=== PATIENT | male | born 1975 | race African-American/Black ===

== ENCOUNTER 2023-05-06 20:59 | Emergency (ER) | payer BC, MEDICARE, SELFPAY ==
[2023-05-06] VITALS (12 sets, daily range): BP systolic 116–153; BP diastolic 76–111; PULSE 79–97; RESP 20–22; O2SAT 96–99; BMI 26.6
--- NOTE | 2023-05-06 21:24 | ED_ITS ---
HPI - SOB/Dyspnea General Chief Complaint: Shortness of Breath/Dyspnea Stated Complaint: Shortness of Breath Time Seen by Provider: 05/06/23 21:01 Source: patient Mode of arrival: ambulance History of Present Illness HPI Narrative: This 48-year-old male with a history of a cerebral aneurysm in 2013 that required a coil who is a nonsmoker and has a history of anxiety and depression who takes Prozac and Seroquel is brought emergency department by EMS from his bssqyvl-nd-ljy's house for evaluation after he took his nighttime medications and fell asleep briefly and then woke up with pounding in his chest and shortness of breath and then had some left-sided hand numbness and tingling. The patient had a similar episode in the past week and was seen at [facility]. He had a workup at that time and is scheduled for a sleep study and wore a threat monitoring analyst for 48 hours. He denies any dizziness diaphoresis or syncope. He has no nausea or vomiting. The patient is going through a separation and left his of 14 years 4 days ago which is why he is staying with his [id number]. He denies any headache. He has no focal weakness numbness or tingling. Related Data Home Medications Medication Instructions Recorded Confirmed buspirone 5 mg tablet 5 mg PO BID 05/06/23 05/06/23 fluoxetine 10 mg tablet 10 mg PO DAILY 05/06/23 05/06/23 lisinopril 10 mg tablet 10 mg PO DAILY 05/06/23 05/06/23 quetiapine 400 mg tablet (Seroquel) 400 mg PO DAILY 05/06/23 05/06/23 Allergies Allergy/AdvReac Type Severity Reaction Status Date / Time No Known Drug Allergies Allergy Verified 05/06/23 21:03 Review of Systems ROS Status of ROS 10 or more systems reviewed and unremarkable except as noted in history and below [facility] Social History Smoking status: Former smoker Exam Narrative Exam Narrative: Nurses note and vital signs reviewed and patient is not hypoxic. General: The patient appears well and in no apparent distress. Patient is resting comfortably on cart. He is alert, mildly anxious, talking on his phone, GCS 15 Skin: Warm, dry, no pallor noted. There is no rash noted. Head: Normocephalic, atraumatic Eye: Normal conjunctiva, no drainage, EOMI. PERRL Ears, Nose, Mouth, and Throat: oral mucosa is moist. Nares patent. Mouth without vesicles. Cardiovascular: Regular Rate and Rhythm S1S2, Murmurs rubs or gallops appreciated pulses are brisk and equal bilaterally Respiratory: Patient is in no distress, no accessory muscle use, lungs are clear to auscultation, no wheezing, rales or rhonchi Back: non-tender, no CVA tenderness bilaterally to percussion. GI: Normal bowel sounds, no tenderness to palpation, no masses appreciated. No rebound, guarding, or rigidity noted. Musculoskeletal: The patient has no evidence of calf tenderness, no pitting edema, symmetrical pulses noted bilaterally Neurological: A&O x4, normal speech, Upper and lower external he strength and sensation is intact, no facial droop Psychiatric: Cooperative Constitutional Vital Signs, click to edit/add: Last Vital Signs Pulse 84 05/06/23 23:00 Resp 21 05/06/23 21:30 BP 129/78 05/06/23 23:00 Pulse Ox 96 05/06/23 23:00 O2 Del Method Room Air 05/06/23 21:13 Course Vital Signs Vital signs: Vital Signs Blood Pressure 116/86 05/06/23 21:01 Pulse Rate 84 05/06/23 23:00 Respiratory Rate 21 05/06/23 21:30 Blood Pressure 129/78 05/06/23 23:00 Pulse Oximetry 96 05/06/23 23:00 Oxygen Delivery Method Room Air 05/06/23 21:13 MDM - SOB/Dyspnea MDM Narrative Medical decision making narrative: This 48-year-old male who is recently from his and has a history of depression and anxiety brought emergency department by EMS from his tpdwoka-cy-gbl's house where he is currently staying. The patient took his nighttime medications and woke up with palpitations and left arm numbness and tingling. He states he try to go back to sleep but his symptoms recurred. He had a similar event recently and was seen at [facility]. He was scheduled for a sleep study and wore a threat monitoring analyst for several days. He has not sent the threat monitoring analyst in for evaluation yet. He was diagnosed with anxiety and hypokalemia at [place] after a cardiac workup was negative. I repeated cardiac workup including troponin, d-dimer, delta troponin, CBC with differential and comprehensive metabolic profile. His potassium was 2.7 again today. He was medicated with IV and oral potassium for this. He had a normal EKG upon arrival. He has on the threat monitoring analyst without any cardiac arrhythmia or notable abnormality. His vital signs have been stable. He does admit that he has not been taking his lisinopril recently and thinks he has left it at his estranged wives house. He was medicated in the ED with 324 mg baby aspirin, IV fluids, potassium replacement and or valium. On reevaluation he states he is feeling much better. He was able to sleep for a while. He feels comfortable being discharged home. He'll be discharged home with a short course of Ativan to use if he has recurrent episodes of what sounds like anxiety/panic attacks while trying to go to sleep as well as a refill of his lisinopril so he can resume it as he has been off of it for a week and potassium supplementation. He intends to follow up for the sleep study and follow up for further evaluation of his cardiac monitoring. Medical Records Attestation: I reviewed the patient's medical records. (Recent emergency department visit from [facility] was reviewed) Medical records narrative: Pt had a negative cardiac workup and a potassium of 2.7 diagnosed with panic attack and hypokalemia. Discharged home with Rx for potassium Lab Data Lab results narrative: potassium of 2.7, normal d dimer, troponin and delta troponin are normal Labs: Lab Results 05/06/23 05/06/23 Range/Units 21:05 23:11 WBC 8.8 (4.0-11.0) 10^3/uL RBC 4.42 L (4.70-6.10) 10^6/uL Hgb 13.1 L (14.0-18.0) g/dL Hct 38.8 L (42.0-54.0) % MCV 87.8 (80.0-94.0) fL MCH 29.6 (25.9-34.0) pg MCHC 33.8 (29.9-35.2) g/dL RDW 13.3 (11.0-15.0) % Plt Count 338 (150-450) 10^3/uL MPV 9.1 L (9.5-13.5) fL Neut % (Auto) 58.2 (43.0-75.0) % Lymph % (Auto) 31.6 (20.5-60.0) % [place] % (Auto) 8.3 (1.7-12.0) % Eos % (Auto) 1.2 (0.9-7.0) % Baso % (Auto) 0.5 (0.2-2.0) % Neut # (Auto) 5.1 (1.4-6.5) 10^3/uL Lymph # (Auto) 2.8 (1.2-3.8) 10^3/uL [place] # (Auto) 0.7 (0.3-0.8) 10^3/uL Eos # (Auto) 0.1 (0.0-0.7) 10^3/uL Baso # (Auto) 0.0 (0.0-0.1) 10^3/uL Abs Immat Gran (auto) 0.02 (0.00-0.03) 10^3/uL Imm/Tot Granulo (auto) 0.2 (0.0-0.5) % D-Dimer <0.19 (<=0.59) mg/L FEU Sodium 138 (136-145) mmol/L Potassium 2.7 L* (3.5-5.1) mmol/L Chloride 103 (98-107) mmol/L Carbon Dioxide 24.5 (21.0-32.0) mmol/L Anion Gap 13.2 BUN 6.0 L (7.0-18.0) mg/dL Creatinine 1.06 (0.70-1.30) mg/dL Est GFR ( Amer) >60 (>=60) Est GFR (Non-Af Amer) >60 (>=60) BUN/Creatinine Ratio 5.7 Glucose 118 H (74-106) mg/dL Calcium 9.1 (8.5-10.1) mg/dL Total Bilirubin 0.8 (0.2-1.0) mg/dL AST 20 (15-37) U/L ALT 24 (16-63) U/L Alkaline Phosphatase 69 (46-116) U/L Troponin I High Sens 9.4 13.8 (4.0-76.1) pg/mL Total Protein 7.7 (6.4-8.2) g/dL Albumin 4.1 (3.4-5.0) g/dL Globulin 3.6 g/dL Albumin/Globulin Ratio 1.1 ECG Data Attestation: I personally reviewed and interpreted this ECG as follows: (Sinus rhythm at 87 beats for minute, normal axis, normal intervals, no acute ST segment elevation or T-wave inversion, interpretation some limited by patient movement) Discharge Plan Discharge Chief Complaint: Shortness of Breath/Dyspnea Clinical Impression: Anxiety, Hypokalemia Patient Disposition: Home, Self-Care Time of Disposition Decision: 00:08 Condition: Good Prescriptions / Home Meds: No Action buspirone 5 mg tablet 5 mg PO BID quetiapine [Seroquel] 400 mg tablet 400 mg PO DAILY lisinopril 10 mg tablet 10 mg PO DAILY fluoxetine 10 mg tablet 10 mg PO DAILY Instructions: Potassium Content of Foods List (ED), Hypokalemia (ED), Panic Disorder (ED), Anxiety (ED) Stand Alone Forms: Portal Instructions Referrals: Physician,Non-Staff, MD [Primary Care Provider] - 1 week
[2023-05-06 21:34] LABS: Basophils Percent Auto 0.5 % (0.2-2.0); Eosinophils Absolute Auto 0.1 10^3/uL (0.0-0.7); Eosinophils Percent Auto 1.2 % (0.9-7.0); Hematocrit 38.8 % (42.0-54.0); Hemoglobin 13.1 g/dL (14.0-18.0); Immature Granulocytes Abs Auto 0.02 10^3/uL (0.00-0.03); Immature Granulocytes Pct Auto 0.2 % (0.0-0.5); Lymphocytes Absolute Auto 2.8 10^3/uL (1.2-3.8); Lymphocytes Percent Auto 31.6 % (20.5-60.0); Mean Corpuscular HGB Conc 33.8 g/dL (29.9-35.2); Mean Corpuscular Hemoglobin 29.6 pg (25.9-34.0); Mean Corpuscular Volume 87.8 fL (80.0-94.0); Mean Platelet Volume 9.1 fL (9.5-13.5); Monocytes Absolute Auto 0.7 10^3/uL (0.3-0.8); Monocytes Percent Auto 8.3 % (1.7-12.0); Neutrophils Absolute Auto 5.1 10^3/uL (1.4-6.5); Neutrophils Percent Auto 58.2 % (43.0-75.0); Platelet Count 338 10^3/uL (150-450); Red Blood Count 4.42 10^6/uL (4.70-6.10); Red Cell Distribution Width 13.3 % (11.0-15.0); White Blood Count 8.8 10^3/uL (4.0-11.0)
[2023-05-06] MEDS: ASPIRIN 81 MG TAB.CHEW 324 MG PO (21:45)
[2023-05-06] MEDS: DIAZEPAM 5 MG TABLET PO (21:46)
[2023-05-06 21:51] LABS: Alanine Aminotransferase 24 U/L (16-63); Albumin Globulin Ratio 1.1; Albumin Level 4.1 g/dL (3.4-5.0); Alkaline Phosphatase 69 U/L (46-116); Anion Gap 13.2; Aspartate Amino Transferase 20 U/L (15-37); BUN Creatinine Ratio 5.7; Bilirubin Total 0.8 mg/dL (0.2-1.0); Calcium 9.1 mg/dL (8.5-10.1); Carbon Dioxide 24.5 mmol/L (21.0-32.0); Chloride 103 mmol/L (98-107); D Dimer <0.19 mg/L FEU (<=0.59); Estimated GFR (African America >60 (>=60); Estimated GFR (Non-African Ame >60 (>=60); Globulin 3.6 g/dL; Glucose 118 mg/dL (74-106); Sodium 138 mmol/L (136-145); Total Protein 7.7 g/dL (6.4-8.2); Troponin I High Sensitivity 9.4 pg/mL (4.0-76.1)
[2023-05-06 21:54] LABS: Potassium 2.7 mmol/L (3.5-5.1)
[2023-05-06] MEDS: POTASSIUM CHLORIDE IN WATER 10 MEQ/100 ML PIGGYBACK 100 MEQ IV (22:14)
[2023-05-06] MEDS: POTASSIUM CHLORIDE 10 MEQ ER TABLET 40 MEQ PO (22:15)
--- NOTE | 2023-05-06 22:52 | XR_ITS ---
The [address] [address] Patient Name: KESHAWN GASTELUM MRN: [id number] date: 1975 Sex: M Assigned Patient Location: ER Current Patient Location: ER Accession/Order Number: [id number] Exam Date: 05/06/2023 23:00 Report Date: 05/06/2023 23:30 At the request of: RAFITA MARKER Procedure: XR chest 1V EXAM: XR chest 1V HISTORY: cp COMPARISON: None. TECHNIQUE: Single AP radiograph of the chest FINDINGS: Elevation of the left hemidiaphragm. No pneumothorax or effusion. Left lung base atelectasis versus infectious process. Normal heart size. No acute osseous abnormality. XR/XR chest 1V IMPRESSION: Left lung base atelectasis versus developing infectious process. Electronically authenticated by: ALDO KOTHARI Date: 05/06/2023 23:30
[2023-05-06 23:52] LABS: Troponin I High Sensitivity 13.8 pg/mL (4.0-76.1)
[2023-05-07] VITALS: BP 131/78; PULSE 75; O2SAT 97
[2023-05-07 00:30] VITALS: BP 122/76; PULSE 73
--- NOTE | 2023-05-07 21:00 | ECG_ITS ---
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
== END 2023-05-07 00:50 | disposition home or self-care (01) ==
PROVIDERS: Emergency Provider Emergency Medicine
DX: F41.9 Anxiety disorder, unspecified (principal); E87.6 Hypokalemia; Z87.891 Personal history of nicotine dependence
CPT/HCPCS: 36415; 71045; 80053; 84484; 85025; 85378; 93005; 96365; 99285

== ENCOUNTER 2023-06-12 02:25 | Emergency (ER) | payer BC, MEDICARE, SELFPAY ==
[2023-06-12] VITALS (9 sets, daily range): BP systolic 112–143; BP diastolic 68–92; PULSE 102–115; RESP 13–33; TEMP 36.9; O2SAT 98–100; BMI 25.1
--- NOTE | 2023-06-12 02:39 | ED.ANXIETY1 ---
HPI - Anxiety General Chief Complaint: Anxiety Stated Complaint: anxiety Time Seen by Provider: 06/12/23 02:26 Source: patient Mode of arrival: walk-in Limitations: no limitations History of Present Illness HPI narrative: 48-year-old male presents for an anxiety attack. It started twenty minutes ago and he's already taken his usual evening medications. He took an Ativan tablet as well and might be starting to feel a little bit better right now. He is not suicidal. He felt like his heart was racing and he felt anxious. No fever cough or vomiting. Related Data Home Medications Medication Instructions Recorded Confirmed buspirone 5 mg tablet 5 mg PO BID 05/06/23 06/12/23 fluoxetine 10 mg tablet 10 mg PO DAILY 05/06/23 06/12/23 lisinopril 10 mg tablet 10 mg PO DAILY 05/06/23 06/12/23 quetiapine 400 mg tablet (Seroquel) 400 mg PO DAILY 05/06/23 06/12/23 hydroxyzine pamoate 25 mg capsule 25 mg PO Q8H PRN anxiety 06/12/23 06/12/23 lisinopril 20 mg tablet 20 mg PO DAILY 06/12/23 06/12/23 lorazepam 1 mg tablet 1 mg PO Q12H PRN anxiety 06/12/23 06/12/23 Allergies Allergy/AdvReac Type Severity Reaction Status Date / Time No Known Drug Allergies Allergy Verified 06/12/23 02:31 Review of Systems ROS Narrative A ten point review of systems is negative except as noted above. PFSH PFSH Social History Smoking status: Never smoker Exam Narrative Exam Narrative: Nurses note and vital signs reviewed and patient is not hypoxic. General: The patient appears well and in no apparent distress. Patient is resting comfortably on cart. Skin: Warm, dry, no pallor noted. There is no rash noted. Head: Normocephalic, atraumatic Eye: Normal conjunctiva, no drainage Ears, Nose, Mouth, and Throat: oral mucosa is moist. Nares patent. Cardiovascular: Regular Rate and Rhythm Respiratory: Patient is in no distress, no accessory muscle use, lungs are clear to auscultation, no wheezing, rales or rhonchi Back: non-tender GI: soft and nontender Musculoskeletal: The patient has no evidence of calf tenderness, no pitting edema, symmetrical pulses noted bilaterally Neurological: A&O, normal speech Psychiatric: Cooperative Constitutional Vital Signs, click to edit/add: Last Vital Signs Temp 98.5 F 06/12/23 02:27 Pulse 108 H 06/12/23 03:10 Resp 18 06/12/23 03:10 BP 132/91 06/12/23 03:01 Pulse Ox 98 06/12/23 03:10 O2 Del Method Room Air 06/12/23 02:27 Course Vital Signs Vital signs: Vital Signs Temperature 98.5 F 06/12/23 02:27 Pulse Rate 115 H 06/12/23 02:27 Respiratory Rate 18 06/12/23 02:27 Blood Pressure 143/92 H 06/12/23 02:27 Pulse Oximetry 100 06/12/23 02:27 Oxygen Delivery Method Room Air 06/12/23 02:27 Temperature 98.5 F 06/12/23 02:27 Pulse Rate 108 H 06/12/23 03:10 Respiratory Rate 18 06/12/23 03:10 Blood Pressure 132/91 06/12/23 03:01 Pulse Oximetry 98 06/12/23 03:10 Oxygen Delivery Method Room Air 06/12/23 02:27 MDM - Anxiety MDM Narrative Medical decision making narrative: the patient was given IM Valium and is feeling improved and is able to be discharged home. Findings were discussed with the patient. Differential Diagnosis Differential diagnosis: Likely panic disorder and acute anxiety ECG Data Attestation: I personally reviewed and interpreted this ECG as follows: (EKG on my interpretation shows sinus rhythm with a rate 112.) Discharge Plan Discharge Chief Complaint: Anxiety Clinical Impression: Anxiety Patient Disposition: Home, Self-Care Time of Disposition Decision: 03:40 Condition: Good Mode of Transportation: Private Vehicle Prescriptions / Home Meds: No Action buspirone 5 mg tablet 5 mg PO BID quetiapine [Seroquel] 400 mg tablet 400 mg PO DAILY lisinopril 10 mg tablet 10 mg PO DAILY fluoxetine 10 mg tablet 10 mg PO DAILY lisinopril 20 mg tablet 20 mg PO DAILY lorazepam 1 mg tablet 1 mg PO Q12H PRN (Reason: anxiety) hydroxyzine pamoate 25 mg capsule 25 mg PO Q8H PRN (Reason: anxiety) Instructions: Anxiety (ED) Stand Alone Forms: Portal Instructions Referrals: Physician,Non-Staff, MD [Primary Care Provider] - 1 week
--- NOTE | 2023-06-12 02:43 | ECG_ITS ---
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
[2023-06-12] MEDS: DIAZEPAM 5 MG/ML - 2 ML INJ SYRINGE IM (03:02)
== END 2023-06-12 03:45 | disposition home or self-care (01) ==
PROVIDERS: Emergency Provider Emergency Medicine
DX: F41.9 Anxiety disorder, unspecified (principal); Z79.899 Other long term (current) drug therapy
CPT/HCPCS: 93005; 96372; 99284